=== PATIENT | male | born 1960 | race Caucasian/White ===

== ENCOUNTER → 2017-04-18 | Outpatient (CLI) | payer BC | END | disposition home or self-care (01) | LOC: GMAH 16:50 | PROVIDERS: ATTEND Family Medicine | DX: Z12.5 Encounter for screening for malignant neoplasm of prostate (principal); E78.2 Mixed hyperlipidemia | CPT/HCPCS: 84443; 84550; G0103 ==

== ENCOUNTER 2017-08-01 05:49 | Day surgery (SDC) | payer OTHER ==
[2017-08-01] MEDS ORDERED: LACTATED RINGERS 1,000 ML ONE (06:04)
[2017-08-01] MEDS ORDERED: fentaNYL CITRATE INJ 50 MCG/ML AMP ONE (07:58)
[2017-08-01] MEDS ORDERED: MIDAZOLAM INJ 2 MG/2 ML VIAL ONE (07:58)
[2017-08-01 09:39] VITALS: BP 110/75; TEMP 97.7; O2SAT 99
[2017-08-01] MEDS ORDERED: LIDOCAINE 1% 10 ML VIAL INJ ONE (10:00)
[2017-08-01] MEDS ORDERED: PROPOFOL 200 MG/20 ML VIAL IV ONE (10:00)
--- NOTE | 2017-08-01 11:48 | OP ---
DATE OF PROCEDURE: 08/01/17 PREOPERATIVE DIAGNOSIS: 1. Personal history of tubular adenomas. POSTOPERATIVE DIAGNOSIS: 1. Three polypectomies. 2. Diverticulosis. PROCEDURE: 1. Colonoscopy. SURGEON: Sonny Alicia MD. ANESTHESIA: MAC. PROCEDURE: Informed consent was obtained prior to sedation. The preprocedure cardiopulmonary assessment was satisfactory. The patient was placed in the left lateral decubitus position and was sedated by the anesthesia team. The tip of the Olympus colonoscope was inserted in the rectum and guided through the entire colon under direct visualization. The ileocecal valve and appendiceal orifice were identified. The preparation was good. Slow withdrawal was started at this time. There was evidence of a flat, 1 cm polyp in the hepatic flexure that was resected and retrieved using a hot snare. As the polypectomy was done, the polyp was partially disintegrated by the current. Some material was able to be retrieved. In the transverse colon, there was a 1 mm polyp that was destructed using electrocautery. Continuation of withdrawal showed evidence of diverticulosis in the sigmoid colon. In the rectosigmoid, there was a 1.2 cm pedunculated polyp that was resected and retrieved using a hot snare. Retroflexion view of the anorectal area appeared unremarkable. The scope was then withdrawn from the patient and the procedure was terminated. RECOMMENDATION: 1. Followup pathology. 2. Repeat colonoscopy in 3 years. 3. Resume diet. 4. Resume home medications. 5. Resume regular activity. 6. Followup with GI in 4 weeks or call for pathology results. #[id number] [facility]
== END 2017-08-01 09:20 | disposition home or self-care (01) ==
LOC: AMB 05:49
DX: Z12.11 Encounter for screening for malignant neoplasm of colon (principal); D12.7 Benign neoplasm of rectosigmoid junction; D12.3 Benign neoplasm of transverse colon; K57.30 Diverticulosis of large intestine without perforation or abscess without bleeding; I10 Essential (primary) hypertension; Z86.010 Personal history of colon polyps; Z87.891 Personal history of nicotine dependence; Z79.899 Other long term (current) drug therapy
CPT/HCPCS: 00812; 45385; J2250; J3010; J3490; J7120